=== PATIENT | female | born 1970 | race Caucasian/White ===

== ENCOUNTER 2020-09-23 10:37 | Outpatient (CLI) | payer OTHER ==
[2020-09-23] MEDS ORDERED: LIDOCAINE 1%, 10ML ONE (10:58)
== END 2020-09-23 23:59 | disposition home or self-care (01) ==
LOC: RAD 10:37
PROVIDERS: ATTEND Internal Medicine Gastroenterology
DX: K70.31 Alcoholic cirrhosis of liver with ascites (principal)
CPT/HCPCS: 49083; J3490